=== PATIENT | male | born 1975 | race Caucasian/White ===

== ENCOUNTER 2019-04-07 15:43 | Emergency (ER) | payer OTHER ==
[~2019-04-07] VITALS: Ht 175.2 cm; Wt 79.4 kg
[~2019-04-07 15:43] MED LIST: BACTRIM DS 8001 TA1 PO; CEPHALEXIN500 M1 PO
[2019-04-07] MEDS ORDERED: SALINE NASAL M126 ML NAS (16:40)
== END 2019-04-07 17:04 | disposition home or self-care (01) ==
LOC: ED 15:43
DX: T17.1XXA Foreign body in nostril, initial encounter (principal); Z88.0 Allergy status to penicillin; X58.XXXA Exposure to other specified factors, initial encounter; Y93.89 Activity, other specified; Y92.89 Other specified places as the place of occurrence of the external cause; Y99.8 Other external cause status

== ENCOUNTER → 2020-07-16 | Outpatient (CLI) | payer OTHER ==
[~2020-07-16] MED LIST changes: +SALINE NASAL M126 ML NAS
== END | disposition home or self-care (01) ==
LOC: RAD 13:43
PROVIDERS: ATTEND Family Medicine
DX: M77.31 Calcaneal spur, right foot (principal)